=== PATIENT | female | born 1940 | race Caucasian/White ===

== ENCOUNTER 2020-10-30 11:30 | Outpatient (CLI) | payer MEDICARE, SELFPAY ==
--- NOTE | ~2020-10-30 | XR_ITS ---
XR knee LT 3V DATE: 10/30/2020 12:07 INDICATION: Lifting and twisting injury 2 days ago. Left knee pain. TECHNIQUE: 3 views COMPARISON: None FINDINGS: Diffuse osteopenia. There is suprapatellar knee joint effusion. There is chondrocalcinosis, best demonstrated at the medi al compartment. There is minimal periarticular spurring of the patella. There is minimal periarticular spurring and m ild loss of joint space at the medial compartment. No fracture, dislocation, periosteal reaction or bone destruction is evident. There is enthesopathy of the superior pole of patella at the quadriceps tendon insertion. IMPRESSION: Suprapatellar knee joint effusion Osteoarthritis Chondrocalcinosis Diffuse osteopenia Reviewed, dictated and finalized at location A.
== END 2020-10-30 11:31 | disposition home or self-care (01) ==
LOC: CHSIMG 11:33
PROVIDERS: PCP Nurse Practitioner Family; Visit Provider Nurse Practitioner Family
DX: R29.898 Other symptoms and signs involving the musculoskeletal system (principal)
CPT/HCPCS: 73562

== ENCOUNTER 2020-11-04 09:08 | Outpatient (CLI) | payer MEDICARE, SELFPAY ==
--- NOTE | ~2020-11-04 | MR_ITS ---
EXAMINATION: MR knee LT wo con DATE: 11/04/2020 11:11 INDICATION: Left knee pain TECHNIQUE: Magnetic resonance imaging (MRI) of the left knee was performed without intravenous contra st. Sequences included coronal PD-weighted FSE, coronal PD-weighted FS FSE, sagittal T2-weighted FSE , sagittal PD-weighted FS FSE and axial PD weighted fat saturated FSE. COMPARISON: None. FINDINGS: Medial compartment: Medial extrusion of the medial meniscal body. There is a longitudinal tear which extends to contact t he superior articular surface at the body and posterior horn of the medial meniscus. The tear appears symmetric and poorly defined suggesting secondary degeneration with a macerated appearance at the ju nction of the body and posterior horn. Articular cartilage is normal. Lateral compartment: Lateral meniscus is normal. Articular cartilage is normal. Patellofemoral compartment: Deep chondral fissuring extending from the inferior aspect of the medial facet across the apical ridg e and midportion of the lateral facet. There is subarticular edema at the medial facet. More localize d region of deep chondral fissuring at the inferior aspect of the medial trochlea with tiny underlyin g focus of increased subarticular marrow signal. Ligaments and tendons: Anterior and posterior cruciate ligaments are normal. The medial collateral ligament and fibular sandeep ateral ligament complex are normal. The extensor mechanism is normal. The visualized medial and later al hamstring tendons as well as the iliotibial band are normal. Fluid: Small left knee joint effusion with mild synovitis at the suprapatellar pouch. No loose osteochondral bodies identified. Small Lott's cyst. Osseous/other: Normal marrow signal aside from increase noted small amount of subarticular edema at the medial sorto lar facet and medial trochlea. No fracture or pathologic marrow replacing process. IMPRESSION: 1. Complex tear of the medial meniscus with macerated appearance at the junction of the body and post erior horn. 2. 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 3. Small left knee joint effusion and small Lott's cyst. Reviewed, dictated and finalized at location A. IMPRESSION: 1. Complex tear of the medial meniscus with macerated appearance at the junctio n of the body and posterior horn. 2. Mild patellofemoral osteoarthritis with small regions of high-grade chondrom alacia. 3. Small left knee joint effusion and small Lott's cyst.
== END 2020-11-04 09:09 | disposition home or self-care (01) ==
PROVIDERS: PCP Nurse Practitioner Family; Visit Provider Nurse Practitioner Family
DX: R29.898 Other symptoms and signs involving the musculoskeletal system (principal)
CPT/HCPCS: 73721